=== PATIENT | female | born 1950 | race Caucasian/White ===

== ENCOUNTER → 2018-08-27 | Outpatient (CLI) | payer OTHER ==
--- NOTE | ~2018-08-27 | PATH ---
[facility] [place] [address] PATHOLOGY RPT PROCEDURE Name: TIMMY CATHERINE Room #: REG YADIRA Tarango.#: [id number] Admission: 08/27/18 Date of : 52 Discharge: Report #: [id number] Path Case #: [id number] [facility] Accession Number: [id number] . 01 Material submitted: . PART A: RANDOM BX CECUM ASCENDING COLON R/O DYSPLASIA PART B: BX OF POLYP ASCENDING COLON PART C: RANDOM BX OF TRANSVERSE COLON R/O DYSPLASIA PART D: RANDOM BX OF DESCENDING COLON R/O DYSPLASIA PART E: RANDOM BX OF SIGMOID COLON R/O DYSPLASIA PART F: RANDOM BX OF RECTUM R/O DYSPLASIA . 01 Clinical history: . Screening, family history of colon cancer, history of ulcerative colitis A. R/O dysplasia C. R/O dysplasia D. R/O dysplasia E. R/O dysplasia F. R/O dysplasia . 02 Diagnosis: A. Large intestine mucosa, cecum and ascending colon, endoscopic biopsy: - Mild chronic active colitis, history of ulcerative colitis. - Negative for dysplasia. . B. Polyp, ascending colon, endoscopic biopsy: - Polypoid mucosa with quiescent colitis showing reactive hyperplastic changes, history of ulcerative colitis. - Negative for dysplasia or malignancy. . C. Large intestine mucosa, transverse colon, endoscopic biopsy: - Mild chronic active colitis, history of ulcerative colitis. - Negative for dysplasia. . D. Large intestine mucosa, descending colon, endoscopic biopsy: - Mild chronic active colitis, history of ulcerative colitis. - Negative for dysplasia. . E. Large intestine mucosa, sigmoid colon, endoscopic biopsy: - Mild chronic active colitis, history of ulcerative colitis. - Negative for dysplasia. . F. Large intestine mucosa, rectum, endoscopic biopsy: - One fragment showing a tubular adenoma; negative for high-grade dysplasia (please see comment). - Remaining fragments showing mild chronic active colitis, history of ulcerative colitis. - Negative for dysplasia within the remainder fragments. [facility] [address] [place] [address] PATHOLOGY RPT PROCEDURE Name: TIMMY CATHERINE Room #: REG [facility].#: [id number] Admission: 08/27/18 Date of : 52 Discharge: Report #: [id number] Path Case #: [id number] . (IUV:sap crm developer; 08/29/2018) MBR/08/29/2018 . 02 Comment: Examination of the large intestine mucosa biopsy tissues show a rare focus of cryptitis with a scattered mild increased cellularity of the lamina propria. Subtle architectural abnormalities are identified. Crypt abscess formation, or surface ulceration are not identified within any of the fragments. Findings are consistent with mild chronic active colitis and with the provided history of ulcerative colitis. The "random biopsy of rectum" shows one fragment of a tubular adenoma without high-grade dysplasia. This fragment may represent low-grade dysplasia in a background of ulcerative colitis, active colitis is not identified within this fragment. . Co-review part F only: Dr. Adore Maddox. . (IUV:sap crm developer; 08/29/2018) . 02 Electronically signed: . Gabi Merchant MD, Pathologist NPI- [id number] . 01 Gross description: . A. Received in formalin labeled "Timmy Catherine, random BX of cecum and ascending colon R/O dysplasia," are eight segments of castelan soft tissue measuring 1.1 x 0.9 x 0.2 cm in aggregate dimensions and ranging from 0.3 to 0.5 cm in maximum dimension. The specimen is submitted entirely in cassette A1. . B. Received in formalin labeled "Timmy Catherine, BX of polyp ascending colon," is a segment of castelan soft tissue measuring 0.4 x 0.3 x 0.2 cm in greatest dimensions. The specimen is submitted entirely in cassette B1. . C. Received in formalin labeled "Timmy Catherine, BX of transverse colon R/O dysplasia,"," and additionally labeled on the requisition as, "random BX," are eight segments of castelan soft tissue measuring 1.1 x 1.0 x 0.3 cm in aggregate dimensions and ranging from 0.2 to 0.6 cm in maximum dimension. The specimen is submitted entirely in cassette C1. . D. Received in formalin labeled "Timmy Catherine, random BX of descending colon R/O dysplasia," are nine segments of castelan soft tissue measuring 1.2 x 1.0 x 0.2 cm in aggregate dimensions and ranging from 0.2 to 0.5 cm in maximum dimension. The specimen is submitted entirely in cassette D1. . E. Received in formalin labeled "Timmy Catherine, random BX of sigmoid [facility] [address] [place] [address] PATHOLOGY RPT PROCEDURE Name: TIMMY CATHERINE Room #: REG [facility].#: [id number] Admission: 08/27/18 Date of : 52 Discharge: Report #: [id number] Path Case #: [id number] colon R/O dysplasia," are nine fragments of castelan soft tissue measuring 1.2 x 0.9 x 0.3 cm in aggregate dimensions and ranging from 0.1 to 0.7 cm in maximum dimension. The specimen is submitted entirely in cassette E1. Some fragments may not survive processing. . F. Received in formalin labeled "Timmy Catherine, random BX of rectum R/O dysplasia," are nine segments of castelan soft tissue measuring 1.1 x 1.0 x 0.2 cm in aggregate dimensions and ranging from 0.1 to 0.5 cm in maximum dimension. The specimen is submitted entirely in cassette F1. The smallest segment may not survive processing. ([facility]; 08/28/2018) XDC/XDC . 02 Pathologist provided ICD-10: K52.9, D12.8, Z87.19 . 02 CPT . 138719, 183117, 650672, 554182, 438414, 256192 Specimen Comment: A courtesy copy of this report has been sent to Specimen Comment: [phone]. Specimen Comment: Report sent to Performed at: [address], [place], [place] [id number] MD Musa Finley MD Phone: [phone] Performed at: [address] [id number] MD Gabi Merchant MD Phone: [phone]
--- NOTE | ~2018-08-27 | P ---
[facility] [place] [address] [place] [address] PROCEDURE REPORT Name: GRACE CATHERINE Room #: REG [facility] Emelina.#: [id number] Admission: 08/27/18 Attend Phys: Vishnu Barnes MD Discharge: Date of : 52 Report #: [id number] THIS REPORT FOR: //name// CC: [facility] physician/PCP Vishnu De Santiago M.D. BRIEF HISTORY: The patient is a 68-year-old woman with a prior history of colitis years ago. She reports she had only one episode of colitis, treated with steroids. She has been on maintenance Delzicol for years. She reports she has not had any flares, change in bowel habits, rectal bleeding or abdominal pain or diarrhea. She presents for high risk screening due to her history of inflammatory bowel disease. PREOPERATIVE DIAGNOSIS: High risk screening secondary to inflammatory bowel disease. POSTOPERATIVE DIAGNOSES: 1. Diminutive polyp, ascending colon. 2. Moderate sigmoid diverticulosis coli. 3. Scarring and few small pseudopolyps left colon suggestive of previous inflammatory bowel disease. MEDICATIONS: Deep sedation with propofol per anesthesia. SPECIMENS: 1. Biopsy cecum, ascending colon, rule out dysplasia. 2. Polyp, ascending colon. 3. Random biopsies, transverse colon. 4. Random biopsies, descending colon. 5. Random biopsies of sigmoid colon. 6. Random biopsies, rectum. ESTIMATED BLOOD LOSS: 5 mL. PROCEDURE: Colonoscopy to cecum and terminal ileum with biopsy. FINDINGS: Prior to propofol sedation, procedure of colonoscopy was reviewed with the patient as well as potential risks and its complications. She indicates she understands and desires to proceed. DESCRIPTION OF PROCEDURE: With the patient in left lateral decubitus position, digital examination was completed, which revealed no abnormalities. Subsequently, the Olympus video colonoscope was introduced in the rectum, advanced under direct vision to the cecum. Done with minimal difficulty. The cecum was identified by the ileocecal valve and the appendiceal orifice. I was able to visualize the distal terminal ileum, which was inspected and noted to be [facility] [address] [place] [address] PROCEDURE REPORT Name: FLORINWENDYBrandy Room #: REG [facility].#: [id number] Admission: 08/27/18 Attend Phys: Vishnu Barnes MD Discharge: Date of : 52 Report #: [id number] unremarkable. At that point, scope was slowly withdrawn and careful circumferential views were obtained. On slow withdrawal of the scope, the prep was noted to be good. The mucosa was within normal limits, normal vascular pattern, normal light reflex. Mucosa was unremarkable in the proximal colon. However, in the ascending colon a diminutive polyp was seen and removed by biopsy. Scope was further withdrawn and in the left colon, there were areas of scarring and loss of vascularity with intact mucosa suggestive of previous significant inflammatory disease, but there was no endoscopic evidence of active disease at this time. As we withdrew the scope, multiple random biopsies were obtained. In the sigmoid colon, there was moderate diverticular disease without endoscopic evidence of diverticulitis. Also, few small pseudopolyps were seen. Several of these were included for biopsy. Upon retroflexion in the rectum, no abnormalities were seen. Scope was withdrawn. The patient tolerated the procedure well. CONDITION OF THE PATIENT UPON DISCHARGE: Following procedure, the patient drowsy, aroused, conversant and will be discharged home when fully ambulatory. INSTRUCTIONS TO THE PATIENT AND FAMILY AT THE TIME OF DISCHARGE: One small polyp identified and removed as described above. We will follow up on the pathology. Endoscopically, she does not have evidence of active disease, but there is clearly evidence of previous significant inflammatory disease. The patient was questioning the need for frequent surveillance. We will have her return to see me in followup in the office for further discussion. We will also obtain labs studies, especially since she is on Delzicol on a long-term basis. Would consider possibly less frequent surveillance as she has not had symptoms for many years. Last colonoscopy was little more than 2 years ago. Withdrawal time from the cecum was 17 minutes 21 seconds. <ELECTRONICALLY SIGNED> By: Vishnu Barnes MD 08/28/18 1158 [id number] Vishnu Barnes MD /nt
== END | disposition home or self-care (01) ==
LOC: GI 08:50
DX: Z12.11 Encounter for screening for malignant neoplasm of colon (principal); Z87.19 Personal history of other diseases of the digestive system; K52.9 Noninfective gastroenteritis and colitis, unspecified; K63.5 Polyp of colon; D12.8 Benign neoplasm of rectum; K57.30 Diverticulosis of large intestine without perforation or abscess without bleeding
CPT/HCPCS: 62110; 62900